=== PATIENT | male | born 1985 | race Caucasian/White ===

== ENCOUNTER 2018-12-27 14:08 | Inpatient (IN) | payer OTHER ==
[2018-12-27 15:03] VITALS: BMI 22.8
--- NOTE | 2018-12-27 15:24 | HP ---
CIWA Score Nausea/Vomitin Muscle Tremors: 3 Anxiety: 3 Agitation: 3 Paroxysmal Sweats: 1-Minimal Palms Moist Orientation: 0-Oriented Tacttile Disturbances: 1-Very Mild Itch/Numbness Auditory Disturbances: 1-Very Mild Visual Disturbances: 0-None Headache: 2-Mild CIWA-Ar Total Score: 16 - Admission Criteria [facility] Guidelines: Admission for Medically Managed Detox: Requires at least one of the followin. CIWA greater than 12 2. Seizures within the past 24 hours 3. Delirium tremens within the past 24 hours 4. Hallucinations within the past 24 hours 5. Acute intervention needed for co occurring medical disorder 6. Acute intervention needed for co occurring psychiatric disorder 7. Severe withdrawal that cannot be handled at a lower level of care (continued vomiting, continued diarrhea, abnormal vital signs) requiring intravenous medication and/or fluids 8. Admission ROS S - HPI Chief Complaint: i need help to stop drinking alcohol and cocaine Allergies/Adverse Reactions: Allergies Allergy/AdvReac Type Severity Reaction Status Date / Time No Known Allergies Allergy Verified 12/27/18 14:55 History of Present Illness: this 33 years old male with alcohol and cocaine dependence,heroin abused,used to be on suboxone 8mgs/2 mgs last filled on 12/16/18 for 3 days,did not comply with suboxone maintenance, denied seizure had previous admissions before ,last 3 weeks ago but not completed nicotine dependence /12 pack /day would lie to use nicotine gum weight loss longest period of sobriety 4 years plan for halfway after detox Exam Limitations: No Limitations - Ebola screening Have you traveled outside of the country in the last 21 days: No (N) Have you had contact with anyone from an Ebola affected area: No Do you have a fever: No - Review of Systems Constitutional: Loss of Appetite, Night Sweats, Changes in sleep, Weakness, Unintentional Wgt. Loss EENT: reports: Tearing, Nose Congestion Respiratory: reports: No Symptoms reported Cardiac: reports: No Symptoms Reported GI: reports: Nausea, Poor Appetite, Vomiting, Indigestion : reports: No Symptoms Reported Integumentary: reports: Dryness Endocrine: reports: No Symptoms Reported Hematology: reports: No Symptoms Reported Psychiatric: reports: No Sypmtoms Reported, Judgement Intact, Mood/Affect Appropiate, Orientated x3 Other Systems: Reviewed and Negative Patient History - Patient Medical History Hx Anemia: No Hx Asthma: No Hx Chronic Obstructive Pulmonary Disease (COPD): No Hx Cancer: No Hx Cardiac Disorders: No Hx Congestive Heart Failure: No Hx Hypertension: No Hx Hypercholesterolemia: No Hx Pacemaker: No HX Cerebrovascular Accident: No Hx Seizures: No Hx Dementia: No Hx Diabetes: No Hx Gastrointestinal Disorders: No Hx Liver Disease: No Hx Genitourinary Disorders: No Hx Sexually Transmitted Disorders: No Hx Renal Disease (ESRD): No Hx Thyroid Disease: No Hx Human Immunodeficiency Virus (HIV): No (last 06/16 negative) Hx Hepatitis C: No Hx Depression: No Hx Suicide Attempt: No Hx Bipolar Disorder: No Hx Schizophrenia: No Other Medical History: no suicdial,no homicidal - Patient Surgical History Past Surgical History: No - PPD History Previous Implant?: Yes Documented Results: Negative w/o proof Implanted On Prior [facility] Admission?: No PPD to be Administered?: Yes - Smoking Cessation Smoking history: Current every day smoker Have you smoked in the past 12 months: Yes Aproximately how many cigarettes per day: 10 Cigars Per Day: 0 Hx Chewing Tobacco Use: No Initiated information on smoking cessation: Yes 'Breaking Loose' booklet given: 12/27/18 - Substance & Tx. History Hx Alcohol Use: Yes Hx Substance Use: Yes Substance Use Type: Alcohol, Cocaine, Heroin Hx Substance Use Treatment: Yes (3 weeks ago,project renewal,not completed) - Substances abused Alcohol Substance route: Oral Frequency: Daily Amount used: 3-4 (6 packs) beer ; 1 Gallon vodka for 3 people Age of first use: 14 Date of last use: 12/27/18 Cocaine Substance route: Smoking Frequency: Daily Amount used: $ 200 Age of first use: 29 Date of last use: 12/27/18 Heroin Substance route: Inhalation Frequency: 3-6 times per week Amount used: 10 Age of first use: 20 Date of last use: 12/19/18 Family Disease History - Family Disease History Family History: Denies Admission Physical Exam BHS - Vital Signs Vital Signs: Vital Signs - 24 hr 12/27/18 12/27/18 14:54 15:16 Temperature 97.3 F L 97.3 F L Pulse Rate 82 82 Respiratory 16 16 Rate Blood Pressure 103/64 103/64 - Physical General Appearance: Yes: Moderate Distress, Tremorous, Irritable, Sweating, Anxious HEENTM: Yes: Normal ENT Inspection, CK, Pharynx Normal Respiratory: Yes: Lungs Clear, Normal Breath Sounds, No Respiratory Distress Neck: Yes: Within Normal Limits, Supple, Trachea in good position Breast: Yes: Within Normal Limits Cardiology: Yes: Within Normal Limits, Regular Rhythm, Regular Rate, S1, S2 Abdominal: Yes: Within Normal Limits, Normal Bowel Sounds, Non Tender, Flat, Soft Genitourinary: Yes: Within Normal Limits Musculoskeletal: Yes: Back pain, Muscle Pain Extremities: Yes: Within Normal Limits, Tremors Neurological: Yes: wound care technician II-XII NML intact, Fully Oriented, Alert, Motor Strength 5/5 Integumentary: Yes: Dry Lymphatic: Yes: Within Normal Limits - Diagnostic (1) Alcohol dependence with uncomplicated withdrawal Current Visit: Yes Status: Acute (2) Cocaine dependence Current Visit: Yes Status: Acute (3) Heroin abuse Current Visit: Yes Status: Acute (4) Weight loss Current Visit: Yes Status: Acute (5) Nicotine dependence Current Visit: Yes Status: Acute Cleared for Admission [facility] - Detox or Rehab [facility] Level of Care: Medically Managed (urine for drug screen negative for opiate) Detox Regimen/Protocol: Librium Breathalyzer - Breathalyzer Breathalyzer: 0.028 Urine Drug Screen - Test Device Lot number: [id number] Expiration date: 07/29/20 - Control Is test valid?: Yes - Results Drug screen NEGATIVE: No Urine drug screen results: ALISHA-Cocaine, BUP-Suboxone Inpatient Rehab Admission - Rehab Decision to Admit Inpatient rehab admission?: No
[2018-12-27] MEDS ORDERED: chlordiazePOXIDE HCL 25 MG CAPSULE PO PRN (15:49)
[2018-12-27] MEDS ORDERED: MENTHOL/PHENOL 1 EACH UD MM PRN (15:50)
[2018-12-27] MEDS ORDERED: METHOCARBAMOL 500 MG TABLET PO PRN (15:50)
[2018-12-27] MEDS ORDERED: IBUPROFEN 400 MG TABLET (FP) PO PRN (15:50)
[2018-12-27] MEDS ORDERED: hydrOXYzine PAMOATE 25 MG CAPSULE (FP) PO PRN (15:50)
[2018-12-27] MEDS ORDERED: MAGNESIUM CITRATE 300 ML BOTTLE PO PRN (15:50)
[2018-12-27] MEDS ORDERED: MAGNESIUM HYDROX 2400MG/30ML ORAL SUSPENSION 30 ML CUP PO PRN (15:50)
[2018-12-27] MEDS ORDERED: ACETAMINOPHEN 325 MG TABLET (FP) PO PRN ×2 (15:50)
[2018-12-27] MEDS ORDERED: MAG HYDROX/AL HYDROX/SIMETH 30 ML UNIT-DOSE CUP PO PRN (15:50)
[2018-12-27] MEDS ORDERED: BISMUTH SUBSALICYLATE 524 MG/30 ML UD PO PRN (15:50)
[2018-12-27] MEDS ORDERED: NICOTINE POLACRILEX 2 MG GUM BUC PRN (15:50)
[2018-12-27] MEDS ORDERED: MELATONIN 5 MG TABLETS PO PRN (15:50)
[2018-12-27] MEDS: chlordiazePOXIDE HCL 25 MG CAPSULE PO SCH ×2 (17:05→22:29)
[2018-12-27] MEDS: METHOCARBAMOL 500 MG TABLET PO SCH ×2 (17:39→22:29)
[2018-12-27] MEDS: cloNIDine HCL 0.1 MG TABLET PO SCH (22:29)
[2018-12-27] MEDS: THIAMINE HCL 100 MG TABLET (FP) PO SCH (22:29)
[2018-12-28] MEDS: chlordiazePOXIDE HCL 25 MG CAPSULE PO SCH ×4 (05:20→22:10)
[2018-12-28 10:10] LABS: HEMATOCRIT 37.7 % (35.4-49); HEMOGLOBIN 12.4 GM/dL (11.7-16.9); MCH 29.7 pg (25.7-33.7); MEAN PLT VOLUME 8.2 fl (7.5-11.1); PLATELET COUNT 203 K/MM3 (134-434); RBC 4.19 M/mm3 (4.00-5.60); RDW 14.2 % (11.9-15.9); WHITE BLOOD COUNT 5.6 K/mm3 (4.0-10.0)
[2018-12-28 10:21] LABS: ALBUMIN 3.1 g/dl (3.4-5.0); ALK PHOS 53 U/L (45-117); ANION GAP 5 MMOL/L (8-16); BILIRUBIN,TOTAL 0.2 mg/dL (0.2-1); BLOOD UREA NITROGEN 15 mg/dL (7-18); CALCIUM 8.5 mg/dL (8.5-10.1); CHLORIDE 108 mmol/L (98-107); CO2 28 mmol/L (21-32); GLUCOSE,RANDOM 85 mg/dL (74-106); SGOT/AST 18 U/L (15-37); SGPT/ALT 28 U/L (13-61); SODIUM 141 mmol/L (136-145)
[2018-12-28] MEDS: cloNIDine HCL 0.1 MG TABLET PO SCH ×2 (10:39→22:08)
[2018-12-28] MEDS: METHOCARBAMOL 500 MG TABLET PO SCH ×4 (10:39→22:09)
[2018-12-28] MEDS: PRENATAL VITAMINS W/ FOLIC ACID TABLET (FP) PO SCH (10:39)
[2018-12-28] MEDS ORDERED: WITCH HAZEL 50% (TUCKS) 40 PAD/JAR PAD TP PRN ×2 (12:21→12:28)
[2018-12-28] MEDS ORDERED: BENZOCAINE 28 GM HEMORRHOIDAL OINTMENT PR PRN (12:22)
--- NOTE | 2018-12-28 12:33 | PN ---
S CIWA - CIWA Score Nausea/Vomitin-No Nausea/No Vomiting Muscle Tremors: 3 Anxiety: 3 Agitation: 2 Paroxysmal Sweats: 3 Orientation: 0-Oriented Tacttile Disturbances: 1-Very Mild Itch/Numbness Auditory Disturbances: 0-None Visual Disturbances: 3-Moderate Sensitivity Headache: 0-None Present CIWA-Ar Total Score: 15 BHS Progress Note (SOAP) Subjective: Sweating, Tremors, Anxious. Objective: PATIENT A & O X 3, OBSERVED AMBULATING ON UNIT UNASSISTED. IN NO ACUTE DISTRESS. 12/28/18 12:31 Vital Signs Temperature 97.7 F 12/28/18 08:59 Pulse Rate 70 12/28/18 08:59 Respiratory Rate 16 12/28/18 08:59 Blood Pressure 102/65 12/28/18 08:59 O2 Sat by Pulse Oximetry (%) Laboratory Tests 12/28/18 12/28/18 07:00 07:00 WBC 5.6 RBC 4.19 Hgb 12.4 Hct 37.7 MCV 90.0 MCH 29.7 MCHC 33.0 RDW 14.2 Plt Count 203 MPV 8.2 Sodium 141 Potassium 4.0 Chloride 108 H Carbon Dioxide 28 Anion Gap 5 L BUN 15 Creatinine 1.0 Creat Clearance w eGFR 86.06 Random Glucose 85 Calcium 8.5 Total Bilirubin 0.2 AST 18 ALT 28 Alkaline Phosphatase 53 Total Protein 6.0 L Albumin 3.1 L LABS NOTED. RPR RESULT PENDING. 12/28/18 12:32 Assessment: 12/28/18 12:32 WITHDRAWAL SYMPTOMS. Plan: CONTINUE DETOX. INCREASE DAILY PO FLUID / WATER INTAKE.
--- NOTE | 2018-12-28 12:56 | EKG ---
Test Reason : Blood Pressure : / mmHG Vent. Rate : 078 BPM Atrial Rate : 078 BPM P-R Int : 120 ms QRS Dur : 078 ms QT Int : 366 ms P-R-T Axes : -26 077 053 degrees QTc Int : 417 ms NORMAL SINUS RHYTHM NORMAL ECG NO PREVIOUS ECGS AVAILABLE Confirmed by DHAVAL ISSA, LEE ANN ([id number] on 12/28/2018 12:56:06 PM Referred By: Confirmed By:LEE ANN PUENTES MD
[2018-12-28] MEDS ORDERED: ONDANSETRON *ODT* 4 MG TABLET SL PRN (14:37)
[2018-12-28] MEDS: DOCUSATE SODIUM 100 MG CAPSULE (FP) PO SCH ×2 (15:02→22:09)
[2018-12-28] MEDS: THIAMINE HCL 100 MG TABLET (FP) PO SCH (22:09)
[2018-12-29] MEDS: chlordiazePOXIDE HCL 25 MG CAPSULE PO SCH ×2 (05:38→10:08)
[2018-12-29] MEDS: DOCUSATE SODIUM 100 MG CAPSULE (FP) PO SCH ×3 (05:38→22:11)
[2018-12-29] MEDS: cloNIDine HCL 0.1 MG TABLET PO SCH ×2 (10:06→22:11)
[2018-12-29] MEDS: METHOCARBAMOL 500 MG TABLET PO SCH ×4 (10:06→22:11)
[2018-12-29] MEDS: PRENATAL VITAMINS W/ FOLIC ACID TABLET (FP) PO SCH (10:06)
--- NOTE | 2018-12-29 12:57 | PN ---
S CIWA - CIWA Score Nausea/Vomitin-No Nausea/No Vomiting Muscle Tremors: 2 Anxiety: 2 Agitation: 0-Normal Activity Paroxysmal Sweats: 2 Orientation: 0-Oriented Tacttile Disturbances: 2-Mild Itch/Numbness/Burn Auditory Disturbances: 0-None Visual Disturbances: 2-Mild Sensitivity Headache: 0-None Present CIWA-Ar Total Score: 10 BHS Progress Note (SOAP) Subjective: Sweating, Tremors, Anxious, Constipation. Objective: PATIENT A & O X 3. IN NO ACUTE DISTRESS. 12/29/18 12:54 Vital Signs Temperature 98.4 F 12/29/18 09:46 Pulse Rate 76 12/29/18 09:46 Respiratory Rate 18 12/29/18 09:46 Blood Pressure 112/56 L 12/29/18 09:46 O2 Sat by Pulse Oximetry (%) Laboratory Tests 12/28/18 12/28/18 12/28/18 07:00 07:00 07:00 WBC 5.6 RBC 4.19 Hgb 12.4 Hct 37.7 MCV 90.0 MCH 29.7 MCHC 33.0 RDW 14.2 Plt Count 203 MPV 8.2 Sodium 141 Potassium 4.0 Chloride 108 H Carbon Dioxide 28 Anion Gap 5 L BUN 15 Creatinine 1.0 Creat Clearance w eGFR 86.06 Random Glucose 85 Calcium 8.5 Total Bilirubin 0.2 AST 18 ALT 28 Alkaline Phosphatase 53 Total Protein 6.0 L Albumin 3.1 L RPR Titer Nonreactive LABS NOTED. Assessment: 12/29/18 12:54 WITHDRAWAL SYMPTOMS. Plan: CONTINUE DETOX. INCREASE DAILY PO FLUID INTAKE. COLACE, 100 MG PO TID FOR CONSTIPATION.
[2018-12-29] MEDS ORDERED: chlordiazePOXIDE HCL 10 MG CAPSULE PO PRN (17:00)
[2018-12-29] MEDS: chlordiazePOXIDE HCL 10 MG CAPSULE PO SCH ×2 (17:31→22:14)
[2018-12-29] MEDS: THIAMINE HCL 100 MG TABLET (FP) PO SCH (22:13)
[2018-12-30] MEDS: DOCUSATE SODIUM 100 MG CAPSULE (FP) PO SCH ×2 (06:15→14:50)
[2018-12-30] MEDS: chlordiazePOXIDE HCL 10 MG CAPSULE PO SCH ×2 (06:16→10:48)
[2018-12-30] MEDS: cloNIDine HCL 0.1 MG TABLET PO SCH (10:47)
[2018-12-30] MEDS: PRENATAL VITAMINS W/ FOLIC ACID TABLET (FP) PO SCH (10:48)
[2018-12-30] MEDS: METHOCARBAMOL 500 MG TABLET PO SCH ×2 (10:48→14:50)
--- NOTE | 2018-12-30 13:39 | PN ---
S CIWA - CIWA Score Nausea/Vomitin-No Nausea/No Vomiting Muscle Tremors: 2 Anxiety: 3 Agitation: 0-Normal Activity Paroxysmal Sweats: 3 Orientation: 0-Oriented Tacttile Disturbances: 1-Very Mild Itch/Numbness Auditory Disturbances: 0-None Visual Disturbances: 2-Mild Sensitivity Headache: 0-None Present CIWA-Ar Total Score: 11 S Progress Note (SOAP) Subjective: Sweating, Fatigue, Tremors. Objective: PATIENT A & O X 3, OBSERVED AMBULATING ON UNIT UNASSISTED. IN NO ACUTE DISTRESS. 12/30/18 13:47 Vital Signs Temperature 98.1 F 12/30/18 09:22 Pulse Rate 59 L 12/30/18 09:22 Respiratory Rate 18 12/30/18 09:22 Blood Pressure 101/69 12/30/18 09:22 O2 Sat by Pulse Oximetry (%) Laboratory Tests 12/28/18 12/28/18 12/28/18 07:00 07:00 07:00 WBC 5.6 RBC 4.19 Hgb 12.4 Hct 37.7 MCV 90.0 MCH 29.7 MCHC 33.0 RDW 14.2 Plt Count 203 MPV 8.2 Sodium 141 Potassium 4.0 Chloride 108 H Carbon Dioxide 28 Anion Gap 5 L BUN 15 Creatinine 1.0 Creat Clearance w eGFR 86.06 Random Glucose 85 Calcium 8.5 Total Bilirubin 0.2 AST 18 ALT 28 Alkaline Phosphatase 53 Total Protein 6.0 L Albumin 3.1 L RPR Titer Nonreactive LABS NOTED. Assessment: 12/30/18 13:47 WITHDRAWAL SYMPTOMS. Plan: CONTINUE DETOX. INCREASE DAILY PO FLUID / WATER INTAKE.
[2018-12-30 14:07] VITALS: BP 109/69; PULSE 62; TEMP 98.9
[2018-12-30] MEDS ORDERED: chlordiazePOXIDE HCL 10 MG CAPSULE PO SCH (17:00)
--- NOTE | 2018-12-30 17:37 | DS ---
[facility] Detox Discharge Summary Admission Date: 12/27/18 Discharge Date: 12/30/18 - History Present History: Alcohol Dependence, Cocaine Dependence, Opioid Dependence Pertinent Past History: - Physical Exam Results Vital Signs: Vital Signs Temperature 98.9 F 12/30/18 14:06 Pulse Rate 62 12/30/18 14:06 Respiratory Rate 18 12/30/18 14:06 Blood Pressure 109/69 12/30/18 14:06 O2 Sat by Pulse Oximetry (%) Pertinent Admission Physical Exam Findings: Laboratory Tests 12/28/18 12/28/18 12/28/18 07:00 07:00 07:00 WBC 5.6 RBC 4.19 Hgb 12.4 Hct 37.7 MCV 90.0 MCH 29.7 MCHC 33.0 RDW 14.2 Plt Count 203 MPV 8.2 Sodium 141 Potassium 4.0 Chloride 108 H Carbon Dioxide 28 Anion Gap 5 L BUN 15 Creatinine 1.0 Creat Clearance w eGFR 86.06 Random Glucose 85 Calcium 8.5 Total Bilirubin 0.2 AST 18 ALT 28 Alkaline Phosphatase 53 Total Protein 6.0 L Albumin 3.1 L RPR Titer Nonreactive LABS NOTED - Medication Discharge Medications: Ambulatory Orders NK [No Known Home Medication] 12/27/18 - Diagnosis (1) Alcohol dependence with uncomplicated withdrawal Status: Acute (2) Cocaine dependence Status: Acute (3) Heroin abuse Status: Acute (4) Nicotine dependence Status: Acute (5) Weight loss Status: Acute - AMA Did Patient Leave Against Medical Advice: Yes (Pt. stated he did not require any medication refills. )
== END 2018-12-30 17:25 | disposition left against medical advice (07) | DRG 770 ==
LOC: YASAS 14:08 → Y6N 16:18
PROVIDERS: ADMIT Surgery; ATTEND Surgery
PROC: HZ2ZZZZ Detoxification Services for Substance Abuse Treatment (ICD-10-PCS; principal; 2018-12-27)
DX: F10.230 Alcohol dependence with withdrawal, uncomplicated (principal); F14.20 Cocaine dependence, uncomplicated; F11.10 Opioid abuse, uncomplicated; F17.210 Nicotine dependence, cigarettes, uncomplicated; K59.00 Constipation, unspecified; R63.4 Abnormal weight loss; Z68.22 Body mass index [BMI] 22.0-22.9, adult
CPT/HCPCS: 36415; 80053; 85027; 86593; 93005; 93010; J0735